=== PATIENT | male | born 1985 | race Two or more races ===

== ENCOUNTER 2018-06-25 09:08 | Emergency (ER) | payer MEDICAID, OTHER ==
[~2018-06-25] VITALS: Ht 177.8 cm; Wt 90.7 kg
[2018-06-25 09:18] VITALS: BP 120/69
== END 2018-06-25 10:10 | disposition home or self-care (01) ==
LOC: ER 09:11
DX: S60.221A Contusion of right hand, initial encounter (principal); F17.210 Nicotine dependence, cigarettes, uncomplicated; W22.8XXA Striking against or struck by other objects, initial encounter; Y93.89 Activity, other specified; Y99.8 Other external cause status; Y92.89 Other specified places as the place of occurrence of the external cause
CPT/HCPCS: 73110; 73130